=== PATIENT | female | born 1965 | race American Indian/Alaskan Native ===

== ENCOUNTER 2018-07-05 08:04 | Day surgery (SDC) | payer BC ==
[2018-07-04 13:56] VITALS: BMI 37.6
--- NOTE | 2018-07-05 10:38 | CP.SDSHP ---
Same Day Surgery H & P - History Proposed Procedure: colonoscopy - Previous Medical/Surgical History Cardiac: Hypertension Endocrine/Metabolic: Diabetes Misc: Anemia Previous Surgical History: Csection myomectomy hip replacement - Allergies Allergies: Allergies seasonal Allergy (Uncoded 07/04/18 13:55) ITCHING SNEEZING, WATERY EYES - Physical Exam Vital Signs: Vital Signs 07/05/18 08:20 Temperature 98.6 F Pulse Rate 81 Respiratory 18 Rate Blood Pressure 137/81 O2 Sat by Pulse 100 Oximetry - Date & Time Date: 07/05/18 Time: 10:38 Short Stay Discharge - Short Stay Discharge Admitting Diagnosis/Reason for Visit: SCREENING Disposition: HOME/ ROUTINE Referrals: Ashwini Cho MD [Primary Care Provider] -
[2018-07-05] MEDS ORDERED: Propofol 10 mg/ml Inj (20 ML) ONE ×2 (10:51→11:02)
[2018-07-05] MEDS ORDERED: Midazolam 2 MG/2 ML VIAL ONE (10:51)
[2018-07-05] MEDS ORDERED: Lactated Ringer's 500 ML IV ONE (10:52)
[2018-07-05 12:10] VITALS: TEMP 98
[2018-07-05 12:18] VITALS: BP 135/79; PULSE 85; RESP 20; O2SAT 99
== END 2018-07-05 12:15 | disposition home or self-care (01) ==
LOC: C.ENDO 08:04
PROVIDERS: ATTEND Colon & Rectal Surgery
DX: Z12.11 Encounter for screening for malignant neoplasm of colon (principal); K57.30 Diverticulosis of large intestine without perforation or abscess without bleeding; K64.8 Other hemorrhoids; K64.4 Residual hemorrhoidal skin tags; I10 Essential (primary) hypertension; E11.9 Type 2 diabetes mellitus without complications; D64.9 Anemia, unspecified; Z96.649 Presence of unspecified artificial hip joint
CPT/HCPCS: 84703; G0121; J2250; J2704; J7120